=== PATIENT | female | born 1975 | race Caucasian/White ===

== ENCOUNTER → 2017-01-14 | Outpatient (CLI) | payer OTHER ==
[~2017-01-14] VITALS: Ht 149.9 cm; Wt 90.7 kg
== END ==
LOC: OPSV 13:52
DX: J45.40 Moderate persistent asthma, uncomplicated (principal); Z88.0 Allergy status to penicillin
CPT/HCPCS: 96372

== ENCOUNTER → 2017-01-28 | Outpatient (CLI) | payer OTHER ==
[~2017-01-28] VITALS: Ht 149.9 cm; Wt 90.7 kg
== END ==
LOC: OPSV 14:00
DX: J45.909 Unspecified asthma, uncomplicated (principal)
CPT/HCPCS: 96372

== ENCOUNTER → 2017-02-11 | Outpatient (CLI) | payer OTHER ==
[~2017-02-11] VITALS: Ht 149.9 cm; Wt 90.7 kg
== END ==
LOC: OPSV 13:38
DX: J45.909 Unspecified asthma, uncomplicated (principal)
CPT/HCPCS: 96372

== ENCOUNTER → 2017-02-25 | Outpatient (CLI) | payer OTHER | LOC: OPSV 13:47 | DX: J45.909 Unspecified asthma, uncomplicated (principal) | CPT/HCPCS: 96372; J2357 ==

== ENCOUNTER → 2017-03-11 | Outpatient (CLI) | payer OTHER ==
[~2017-03-11] VITALS: Ht 149.9 cm; Wt 90.7 kg
== END ==
LOC: OPSV 13:32
DX: J45.909 Unspecified asthma, uncomplicated (principal)
CPT/HCPCS: 96372; J2357

== ENCOUNTER → 2017-03-26 | Outpatient (CLI) | payer OTHER | LOC: OPSV 03-25 14:00 | DX: J45.909 Unspecified asthma, uncomplicated (principal) | CPT/HCPCS: 96372; J2357 ==

== ENCOUNTER → 2017-04-08 | Outpatient (CLI) | payer OTHER | LOC: OPSV 13:18 | DX: J45.909 Unspecified asthma, uncomplicated (principal) | CPT/HCPCS: 96372 ==

== ENCOUNTER → 2017-04-22 | Outpatient (CLI) | payer OTHER ==
[~2017-04-22] VITALS: Ht 149.9 cm; Wt 90.7 kg
== END ==
LOC: OPSV 12:47
DX: J45.909 Unspecified asthma, uncomplicated (principal)
CPT/HCPCS: 96372; J2357

== ENCOUNTER → 2017-05-06 | Outpatient (CLI) | payer OTHER ==
[~2017-05-06] VITALS: Ht 149.9 cm; Wt 90.7 kg
== END ==
LOC: OPSV 13:37
DX: J45.909 Unspecified asthma, uncomplicated (principal)
CPT/HCPCS: 96372

== ENCOUNTER → 2020-12-19 | Outpatient (CLI) | payer OTHER ==
[~2020-12-19] VITALS: Ht 149.9 cm; Wt 90.7 kg
== END ==
LOC: OPSV 11-21 14:00
DX: J45.40 Moderate persistent asthma, uncomplicated (principal)
CPT/HCPCS: 96372; J2357

== ENCOUNTER → 2021-01-16 | Outpatient (CLI) | payer OTHER ==
[~2021-01-16] VITALS: Ht 149.9 cm; Wt 90.7 kg
== END ==
LOC: OPSV 11:56
DX: J45.40 Moderate persistent asthma, uncomplicated (principal)
CPT/HCPCS: 96372; J2357

== ENCOUNTER → 2021-02-13 | Outpatient (CLI) | payer OTHER | LOC: OPSV 11:35 | DX: J45.40 Moderate persistent asthma, uncomplicated (principal) | CPT/HCPCS: 96372; J2357 ==

== ENCOUNTER → 2021-03-13 | Outpatient (CLI) | payer OTHER ==
[~2021-03-13] VITALS: Ht 149.9 cm; Wt 90.7 kg
== END ==
LOC: OPSV 11:13
DX: J45.40 Moderate persistent asthma, uncomplicated (principal)
CPT/HCPCS: 96372; J2357

== ENCOUNTER → 2021-04-10 | Outpatient (CLI) | payer OTHER ==
[~2021-04-10] VITALS: Ht 149.9 cm; Wt 90.7 kg
== END ==
LOC: OPSV 11:35
DX: J45.40 Moderate persistent asthma, uncomplicated (principal)
CPT/HCPCS: 96372; J2357